=== PATIENT | female | born 1985 | race Caucasian/White ===

== ENCOUNTER 2017-01-12 05:16 | Inpatient (IN) | payer OTHER ==
[~2017-01-12] VITALS: Ht 170.2 cm; Wt 79.5 kg
[~2017-01-12 05:16] MED LIST: PRENTAB26 PO
[2017-01-12] MEDS ORDERED: LACTATED RINGER'S 1000ML 1,000 ML IV PRN (06:10)
[2017-01-12 06:22] VITALS: Ht 170.2 cm; Wt 79.5 kg
[2017-01-12 06:39] LABS: HEMATOCRIT 34.4 % (37-47); MEAN CELL VOLUME 82.5 fL (80-100); MEAN CORPUSCULAR HEMOGLOBIN 27.3 pg (25-34); MEAN CORPUSCULAR HGB CONC 33.1 g/dl (32-36); MEAN PLATELET VOLUME 10.2 fL (7.4-10.4); PLATELET COUNT 165 K/uL (130-400); RED BLOOD COUNT 4.17 M/uL (4.2-5.4)
[2017-01-12] MEDS: LACTATED RINGER'S 1000ML 1,000 ML IV SCH ×2 (06:42→18:26)
[2017-01-12] MEDS ORDERED: PENICILLIN G POTASSIUM IV 6 MU in DEXTROSE 5% 250ML 250 ML IV ONE (07:00)
[2017-01-12] MEDS: PENICILLIN G POTASSIUM IV 3 MU in DEXTROSE 5% 100ML 100 ML IV PRN ×2 (10:42→14:38)
[2017-01-12] MEDS ORDERED: BUTORPHANOL TARTRATE 1 MG/ML VIAL ONE (15:15)
[2017-01-12] MEDS ORDERED: BUTORPHANOL TARTRATE 1 MG/ML VIAL IV ONE (15:15)
[2017-01-12] MEDS ORDERED: OXYTOCIN 30 UNITS/500ML NSS IV ONE (16:57)
[2017-01-12] MEDS ORDERED: BENZOCAINE 20% AER SPR 82.5 GM CAN EXT PRN (18:15)
[2017-01-12] MEDS ORDERED: ACETAMINOPHEN/CODEINE 300/30MG TAB PO PRN ×2 (18:15)
[2017-01-12] MEDS ORDERED: IBUPROFEN 600 MG TAB PO PRN (18:15)
[2017-01-12] MEDS ORDERED: ACETAMINOPHEN 325 MG TAB PO PRN (18:15)
[2017-01-12] MEDS ORDERED: LANOLIN OINT EXT PRN ×2 (18:15)
[2017-01-12] MEDS ORDERED: OXYTOCIN 30 UNITS/500ML NSS IV PRN (18:15)
[2017-01-12] MEDS ORDERED: SUPERCREAM 0.870 % 15GM JAR EXT PRN (18:15)
--- NOTE | 2017-01-12 19:23 | DELIVERY SUMMARY ---
DATE OF OPERATION: 01/12/2017 ADMISSION DIAGNOSES: 1. Intrauterine at 40 and 4/7th weeks. 2. Early active labor. 3. GBS positive status. POSTEOPERATIVE DIAGNOSES: Same. PROCEDURES: 1. Penicillin for GBS prophylaxis. 2. Amniotomy. 3. Normal spontaneous vaginal delivery. 4. Second degree perineal laceration with repair. SURGEON: Dr. Figueredo. ANESTHESIA: Local infiltration of lidocaine to the perineum. ESTIMATED BLOOD LOSS: 400 mL. PROCEDURE: The patient presented to labor and delivery in active labor. She was scheduled for an elective induction that morning. Anyway, she was found to be 480 and minus 1. She received 2 doses of penicillin for GBS prophylaxis and then underwent amniotomy for clear fluid. She then progressed spontaneously to complete-complete +3 stating. First, for a very short amount of time and delivered a viable male in BERNADINE presentation. There was no nuchal cord. The anterior shoulder was delivered easily. There was a bit of a body dystocia, but the rest of the baby was then delivery. The nose and mouth were bulb suctioned. The cord was clamped and cut. The was placed on the maternal abdomen for drying and attention. Cord blood was collected for the lab and then the patient had a cord blood collection for personal use and cord blood was collected. Placenta was delivered spontaneously intact with a 3-vessel cord. Cervix, sulci, and rectum were examined and found to be intact. A second degree peroneal laceration was repaired in normal fashion with 3-0 Vicryl under local infiltration of lidocaine. Hemostasis was obtained with diluted Pitocin and fundal massage. Apgars 8 and 9. Weight is pending. Mother and baby doing well at the end of the delivery. I attest to the content of the Intraoperative Record and any orders documented therein. Any exceptio ns are noted below.
[2017-01-12 20:45] VITALS: BP 124/80; PULSE 103; TEMP 36.7
[2017-01-12 23:57] VITALS: BP 142/84; PULSE 97; TEMP 36.8
[2017-01-13 04:00] VITALS: BP 118/75; PULSE 80; TEMP 36.9
--- NOTE | 2017-01-13 07:09 | Progress Note ---
Subjective Jan 13, 2017. Subjective conversation w/ patient Ambulation: ambulating normally Voiding: no voiding problems Passing Gas: Yes Diet Tolerance: Regular Diet Lochia: Moderate Feeding Type: Breast Feeding Review of Systems Constitutional: No chills, No fever Respiratory: No cough, No shortness of breath Cardiac: No chest pain Abdomen: No nausea, No pain, No vomiting Objective Vital Signs Date Time Temp Pulse Resp B/P Pulse Ox O2 Delivery O2 Flow Rate FiO2 01/13/17 04:00 36.9 80 18 118/75 Room Air 01/12/17 23:59 Room Air 01/12/17 23:57 36.8 97 18 142/84 Room Air 01/12/17 20:45 Room Air 01/12/17 20:45 36.7 103 20 124/80 Room Air Physical Exam General Appearance: WELL-APPEARING Respiratory/Chest: chest non-tender, lungs clear Cardiovascular: regular rate, rhythm, no murmur Abdomen: non tender, soft Fundus: Firm, Non-Tender, Relation to Umbilicus (2 cm below umbilicus) Extremities: non-tender, no calf tenderness Laboratory Results Last 24 Hours Test 01/12/17 09:29 01/13/17 06:12 HIV (1&2) Ab and P24 Ag, 4th Gener NEG Assessment and Plan Post- Day#: 1 Continue Routine Care: s/p Day 1 - Vital signs reviewed and wnl - Hemoglobin reviewed 11.4 yesterday - Blood type: A-, GBS+, Rubella immune - Pt doing well clinically - Encourage ambulation, monitor and control pain with motrin prn, resume regular diet, monitor lochia - Encourage breast feeding - CONTINUE ROUTINE POST CARE Resident Physician Supervision Note: I was present with Dr. Wade during the history and exam. I discussed the case with the resident and agree with the findings and plan as documented in the note. Any exceptions or clarifications are listed here: None, routine care. Documented By: Jaimie Figueredo
[2017-01-13 07:15] LABS: HEMATOCRIT 32.5 % (37-47)
[2017-01-13 08:05] VITALS: BP 129/87; PULSE 93; TEMP 36.7; O2SAT 97
[2017-01-13] MEDS: PRENATAL VITAMIN TAB PO SCH (08:25)
[2017-01-13] MEDS: DOCUSATE SODIUM 100 MG CAP PO SCH ×2 (08:25→20:09)
[2017-01-13 12:05] VITALS: BP 129/80; PULSE 84; TEMP 36.6; O2SAT 98
[2017-01-13 15:00] VITALS: BP 133/83; PULSE 78; TEMP 36.9; O2SAT 98
[2017-01-13] MEDS ORDERED: BISACODYL 5 MG TABEC PO SCH (20:00)
[2017-01-13 23:55] VITALS: BP 128/80; PULSE 85; TEMP 36.8
[2017-01-14 07:40] VITALS: BP 151/81; PULSE 79; TEMP 36.4; O2SAT 97
--- NOTE | 2017-01-14 07:50 | Progress Note ---
Subjective Jan 14, 2017. Subjective conversation w/ patient, physical exam Ambulation: ambulating normally Voiding: no voiding problems Passing Gas: Yes Diet Tolerance: Regular Diet Lochia: Small Feeding Type: Breast Feeding Review of Systems Constitutional: No fever Respiratory: No shortness of breath Cardiac: No chest pain, No palpitations Abdomen: No nausea, No pain, No vomiting Objective Vital Signs Date Time Temp Pulse Resp B/P Pulse Ox O2 Delivery O2 Flow Rate FiO2 01/13/17 23:55 36.8 85 16 128/80 Room Air 01/13/17 23:55 Room Air 01/13/17 15:00 98 Room Air 01/13/17 15:00 36.9 78 18 133/83 98 Room Air 01/13/17 12:05 36.6 84 18 129/80 98 Room Air 01/13/17 08:05 36.7 93 18 129/87 97 Room Air 01/13/17 08:05 Room Air Physical Exam General Appearance: WELL-APPEARING, NO APPARENT DISTRESS Respiratory/Chest: lungs clear, normal breath sounds Cardiovascular: regular rate, rhythm, no murmur Abdomen: non tender, soft Fundus: Firm, Non-Tender, Relation to Umbilicus (1 cm below umbilicus) Extremities: normal range of motion, no calf tenderness Assessment and Plan Post- Day#: 2 Continue Routine Care: Resident Physician Supervision Note: I was present with Dr. Wade during the history and exam. I discussed the case with the resident and agree with the findings and plan as documented in the note. Any exceptions or clarifications are listed here: [None] Documented By: Doretha Randall s/p Day 2 - Vital signs reviewed and wnl - Blood type: A-, GBS+, Rubella immune - Pt doing well clinically - Encourage ambulation, monitor and control pain w/motrin prn, resume regular diet, monitor lochia - Encourage breast feeding - Pt counselled on d/c instructions - PT D/C today
--- NOTE | 2017-01-14 08:03 | Discharge Instructions ---
Discharge Instructions Admission Reason for Admission: LABOR Discharge Discharge Diagnosis / Problem: recovery after normal delivery Discharge Goals Goal(s): Routine recovery after delivery Medications Continue Dispensed Medications: supercream, dermaplast, tucks, lansinoh Activity Recommendations Activity Limitations: per Instructions/Follow-up section . Instructions / Follow-Up Instructions / Follow-Up ACTIVITY RECOMMENDATIONS: * Gradual return to full activity over the next 2-3 weeks. * No lifting - nothing heavier than baby over the next 2-3 weeks. * Do not engage in vigorous exercise, sexual activity or sports until cleared by your physician. * Do not drive or operate any motorized equipment until cleared by your physician. * You may shower/bathe daily. MEDICATIONS: For discomfort or pain, you may use Acetaminophen (Tylenol), Ibuprofen (Advil), or Naproxen (Aleve) following the package directions. For constipation you may use Colace following the package directions. BREAST CARE: If you are not breast feeding: * Wear a supportive bra 24 hours a day for one to two weeks. * Avoid stimulating your breasts and nipples as much as possible during the first few weeks after delivery. * When taking a shower, have the warm water hit your back, not breasts. * When your breasts feel full, apply ice packs. Usually three to four times a day helps ease the discomfort. * Take a mild pain medication (Tylenol / Motrin) when you are uncomfortable. If breast feeding: * Use breast milk to lubricate nipples. Lansinoh cream may be used for sore nipples. You do not need to remove cream prior to breast feeding. If using a different brand of cream, check the label for directions regarding removal of cream prior to nursing. * Wear a supportive bra. * If having problems with breasts or breast feeding, call a insurance healthcare consultant or your health care provider. EPISIOTOMY CARE: After delivery, if you have an episiotomy (stitches), the following steps will ease discomfort and aid healing. * For the first 24 hours after delivery, place ice packs next to your episiotomy to help reduce swelling. * After the first 24 hour-period, sitz baths, either portable or in the tub, are suggested. A shower with a shower arm sprayed over the episiotomy may be comforting. * Fara care should be done after each voiding and bowel movement. Squirt warm water from a plastic bottle over the perineum (region of the body between the anus and urinary opening) and pat dry. * Use Dermoplast to ease discomfort. Shake container. Dry Prong directly over the episiotomy. Place a Tucks on a clean sanitary pad next to your episiotomy. SPECIAL CARE INSTRUCTIONS: When you are discharged from the hospital, it is important for you to follow the instructions listed below: * During the first week at home, you should be able to care for yourself and your baby. In addition, the usual light household activities are encouraged. * Limit your activities to the way you feel. Do not try to clean the house or move furniture. Be sensible. * If you actively engage in sports and have done so up until the time of your delivery, you may resume these activities as soon as you feel able. This may take up to one month or even longer. Use good judgment. * Continue to take your vitamins for at least six weeks after the of your baby. * Your diet need not be limited unless you were on a special diet before your delivery. Breast-feeding mothers need around 2500 calories per day and at least 64-80 ounces of fluid per day (8 to 10 glasses). * You should eat foods from the four major food groups. Crash diets or fad diets are to be avoided. Eating lean meats, fresh fruits and vegetables, low-fat dairy products, high fiber foods and a regular exercise program, will help you get back to your pre- weight without putting your health at risk. * Constipation is sometimes a problem after delivery. Take a mild laxative as needed. If breast feeding, Milk of Magnesia is acceptable to use. You may use a suppository or Fleets enema if no episiotomy. * A daily shower or tub bath is suggested. Be sure to thoroughly and gently dry the perineum. * A bloody vaginal discharge will usually continue until around four weeks post . A small amount of bleeding may continue for as long as six weeks. Vaginal discharge changes from the bright red bleeding after delivery to pink then brownish and finally yellowish-pink before becoming white and disappearing. * Bleeding may increase with activity. Your first period may come in 4-8 weeks. If you are breast feeding, your period may be delayed even longer. * [place] (sex) can begin whenever both you and your partner feel comfortable and do not have any form of genital infection. It is recommended that you wait at least six weeks for internal and external healing to occur. If you have questions, please talk to your health care practitioner. A condom should be used to prevent infection and . * Foreplay, gentle intercourse and lubrication is very important the first several times to prevent pain. A water-based lubricant such as K-Y jelly or Astroglide may be used. * If you have RH negative blood and your baby is RH positive, you will receive RHOGAM by injection prior to discharge. The nurse will give you a card to keep with you that has the date and place that you received RHOGAM after delivery. * During your care, you had a Rubella screen done to check for the presence of rubella antibodies in your blood. If your test was negative, you will receive a Rubella vaccine prior to discharge. This vaccine may cause a fever, soreness at the injection site and flu-like symptoms. If these symptoms persist, notify your health care practitioner. is not advised for one month after a Rubella vaccine. * Verbalizes understanding of car seat law as reviewed with patient nursing. * Car Seat hand-out given and reviewed with patient by nursing. * Shaken baby information reviewed with patient by nursing. Call you doctor if: * Heavy bleeding (saturating several pads an hour) or passing clots the size of your fist. * A fever >101 degrees F (38.3 degrees C) on two occasions four hours apart and /or chills. * Unusual pain in the pelvic or vaginal areas. * "Baby Blues" lasting longer than two weeks. If you have any questions or concerns, call your health care practitioner at . FOLLOW UP VISIT: * Please call the office at to schedule a 6 week examination. It is important you keep this appointment. It is important for you to make arrangements for either yearly or twice yearly check-ups thereafter. Current Hospital Diet Patient's current hospital diet: Regular OB Diet Discharge Diet Recommended Diet: Regular OB Diet Pending Studies Studies pending at discharge: no Medical Emergencies . Who to Call and When: Medical Emergencies: If at any time you feel your situation is an emergency, please call 911 immediately. . Non-Emergent Contact Non-Emergency issues call your: Entry Level Lab Technician . . "Provider Documentation" section prepared by Doretha Randall. VTE Core Measure Inpt VTE Proph given/why not?: Treatment not indicated
[2017-01-14] MEDS: PRENATAL VITAMIN TAB PO SCH (08:40)
[2017-01-14] MEDS: DOCUSATE SODIUM 100 MG CAP PO SCH (08:40)
[2017-01-14 11:10] VITALS: BP_DIAS 81; PULSE 79; TEMP 36.4
== END 2017-01-14 11:15 | disposition home or self-care (01) | DRG 775 ==
LOC: C.OPB 05:16 → C.LD 05:16 → C.OPB 06:12 → C.LD 06:12 → C.OBG 20:20
PROVIDERS: ADMIT Obstetrics & Gynecology; ATTEND Obstetrics & Gynecology
PROC: 10E0XZZ Delivery of Products of Conception, External Approach (ICD-10-PCS; principal; 2017-01-12)
PROC: 0KQM0ZZ Repair Perineum Muscle, Open Approach (ICD-10-PCS; 2017-01-12)
PROC: 10907ZC Drainage of Amniotic Fluid, Therapeutic from Products of Conception, Via Natural or Artificial Opening (ICD-10-PCS; 2017-01-12)
DX: O48.0 Post-term pregnancy (principal); O36.0930 Maternal care for other rhesus isoimmunization, third trimester, not applicable or unspecified; Z37.0 Single live birth; O70.1 Second degree perineal laceration during delivery; O99.824 Streptococcus B carrier state complicating childbirth; Z3A.40 40 weeks gestation of pregnancy; N94.89 Other specified conditions associated with female genital organs and menstrual cycle; O75.89 Other specified complications of labor and delivery